=== PATIENT | female | born 1985 | race African-American/Black ===

== ENCOUNTER 2018-08-23 17:43 | Inpatient (IN) | payer OTHER ==
--- NOTE | 2018-08-24 00:08 | HP ---
"COWS - Scale Resting Pulse: 1= [place] 81-100 Sweatin=Flushed/Facial Moisture Restless Observation: 0= Sits Still Pupil Size: 2= Moderately Dilated (Pupils = 5 mm) Bone or Joint Aches: 1= Mild Discomfort Runny Nose/ Eye Tearin= None GI Upset > 30mins: 2= Nausea/Diarrhea (No diarrhea) Tremor Observation: 1= Tremor [place], Not Seen Yawning Observation: 1= 1-2x During Session Anxiety or Irritability: 1=Feels Anxious/Irritable Goose Flesh Skin: 0=Smooth Skin COWS Score: 11 (IVDU w/ Cellulitis) CIWA Score - Admission Criteria OASAS Guidelines: Admission for Medically Managed Detox: Requires at least one of the followin. CIWA greater than 12 2. Seizures within the past 24 hours 3. Delirium tremens within the past 24 hours 4. Hallucinations within the past 24 hours 5. Acute intervention needed for co occurring medical disorder 6. Acute intervention needed for co occurring psychiatric disorder 7. Severe withdrawal that cannot be handled at a lower level of care (continued vomiting, continued diarrhea, abnormal vital signs) requiring intravenous medication and/or fluids 8. Admission [facility] Chief Complaint: Here w/ heroin withdrawal Allergies/Adverse Reactions: Allergies Allergy/AdvReac Type Severity Reaction Status Date / Time Sulfa (Sulfonamide Allergy Severe Hives Verified 08/24/18 01:22 Antibiotics) History of Present Illness: I need detox. Heroin use began age 28. IV and nasal. 1 bundle/ day x 8 months. Last used . Cocaine use began at age 33. States use IV. States does not share needles or works. Alcohol use began at age 20. Drinks occasionally on weekends - 2 cups. Denies blackouts, seizures, overdoses. No Narcan Kit at home. Willing to accept upon discharge. Longest lenght of sobriety 1 year while on a MMTP ( 1 year ago). Relapsed after stopping MMT. PMHx: HTN, Iron Deficiency Anemia, LBP, MHHx: Anxiety, insomnia, depression. On meds. Last saw MH Provider 6 months ago. Denies thoughts of harming self or others. Search Terms: Yahaira Whiting, 1985 Search Date: 08/24/2018 12:03:54 AM The Drug Utilization Report below displays all of the controlled substance prescriptions, if any, that your patient has filled in the last twelve months. The information displayed on this report is compiled from pharmacy submissions to the Department, and accurately reflects the information as submitted by the pharmacies. This report was requested by: Daphnie Mcdaniel | Reference #: [id number] There are no results for the search terms that you entered Exam Limitations: No Limitations - Ebola screening Have you traveled outside of the country in the last 21 days: No Have you had contact with anyone from an Ebola affected area: No Do you have a fever: No - Review of Systems Constitutional: Chills, Diaphoresis, Changes in sleep (Difficulty falling asleep - state takes Trazodone) EENT: reports: Blurred Vision Respiratory: reports: Cough (Cough x 1 week. Denies chest pain, SOB) Cardiac: reports: No Symptoms Reported GI: reports: Nausea : reports: No Symptoms Reported Musculoskeletal: reports: Back Pain (LBP x 1 year. Intermittent r/t bending. Back hurts now r/t withdrawal.) Integumentary: reports: Lesions ((L) arm from IVDU) Neuro: reports: No Symptoms reported Endocrine: reports: Increased Thirst Hematology: reports: Anemia (Iron Deficiency) Psychiatric: reports: Judgement Intact, Orientated x3, Anxious, Depressed ( Denies thoughts of harming self or others.) Patient History - PPD History Previous Implant?: Yes Documented Results: Negative w/o proof Implanted On Prior R Admission?: No PPD to be Administered?: Yes - Reproductive History Patient is a Female of Child Bearing Age (11 -55 yrs old): Yes Patient : No - Smoking Cessation Smoking history: Former smoker Have you smoked in the past 12 months: No Hx Chewing Tobacco Use: No Initiated information on smoking cessation: No - Substance & Tx. History Hx Alcohol Use: No Hx Substance Use: Yes Substance Use Type: Cocaine, Heroin Hx Substance Use Treatment: Yes (detox, past MMTP) - Substances abused Heroin Substance route: Injection Frequency: Daily Amount used: 1 bundle Age of first use: 28 Date of last use: 08/23/18 Admission Physical Exam BHS - Vital Signs Vital Signs: Vital Signs - 24 hr 08/23/18 22:22 Temperature 97.1 F L Pulse Rate 91 H Respiratory 18 Rate Blood Pressure 118/82 - Physical General Appearance: Yes: Mild Distress, Tremorous, Sweating (Increased facial moisture), Anxious HEENTM: Yes: EOMI, Hearing grossly Normal, Normocephalic, Normal Voice, STELLA ( Puplis = 5 mm), Pharynx Normal Respiratory: Yes: Lungs Clear, Normal Breath Sounds, No Respiratory Distress Neck: Yes: No masses,lesions,Nodules, Supple Breast: Yes: Breast Exam Deferred Cardiology: Yes: Regular Rhythm, Regular Rate, S1, S2 Abdominal: Yes: Flat, Soft, Increased Bowel Sounds, Tenderness (Mid-epigastric tenderness. No guarding. No rebound.) Genitourinary: Yes: Within Normal Limits Back: Yes: Normal Inspection Musculoskeletal: Yes: full range of Motion, Gait Steady Extremities: Yes: Normal Capillary Refill, Normal Range of Motion, Tremors (mild ) Neurological: Yes: pavilion cutter II-XII NML intact, Fully Oriented, Alert, Motor Strength 5/5 Integumentary: Yes: Normal Color, Warm, Diaphoresis, Track Ferris (Old and new track ferris. Increased warmth, induration, swelling at (L) wrist/radial area w/ increased tenderness.) Lymphatic: Yes: Within Normal Limits - Diagnostic (1) Opioid dependence with withdrawal Current Visit: Yes Status: Acute Comment: IVDU (2) Essential (primary) hypertension Current Visit: Yes Status: Chronic (3) History of low back pain Current Visit: Yes Status: Chronic (4) Anemia Current Visit: Yes Status: Chronic Qualifiers: Anemia type: iron deficiency Iron deficiency anemia type: unspecified iron deficiency Qualified Code(s): D50.9 - Iron deficiency anemia, unspecified (5) Cocaine dependence, uncomplicated Current Visit: Yes Status: Chronic Comment: IVDU (6) Cellulitis Current Visit: Yes Status: Acute Qualifiers: Site of cellulitis: extremity Site of cellulitis of extremity: upper extremity Laterality: left Qualified Code(s): L03.114 - Cellulitis of left upper limb Cleared for Admission S - Detox or Rehab [facility] Level of Care: Medically Managed Detox Regimen/Protocol: Methadone Breathalyzer - Breathalyzer Breathalyzer: 0 POC Urine test - Test device test lot number: [id number] Expiration date: 01/22/20 - Control test control: Yes - Result Urine Test Results: Negative - NO line present Urine Drug Screen - Test Device Lot number: [id number] Expiration date: 04/22/20 - Control Is test valid?: Yes - Results Drug screen NEGATIVE: No Urine drug screen results: CARLOS-Cocaine, FEN-Fentanyl, MOP-Opiates Inpatient Rehab Admission - Rehab Decision to Admit Inpatient rehab admission?: No"
[2018-08-24] MEDS ORDERED: BISMUTH SUBSALICYLATE 524 MG/30 ML UD PO PRN (00:39)
[2018-08-24] MEDS ORDERED: METHOCARBAMOL 500 MG TABLET PO PRN (00:39)
[2018-08-24] MEDS ORDERED: MENTHOL/PHENOL 1 EACH UD MM PRN (00:39)
[2018-08-24] MEDS ORDERED: IBUPROFEN 400 MG TABLET (FP) PO PRN (00:39)
[2018-08-24] MEDS ORDERED: MAGNESIUM HYDROX 2400MG/30ML ORAL SUSPENSION 30 ML CUP PO PRN (00:39)
[2018-08-24] MEDS ORDERED: ACETAMINOPHEN 325 MG TABLET (FP) PO PRN ×2 (00:39)
[2018-08-24] MEDS ORDERED: MAG HYDROX/AL HYDROX/SIMETH 30 ML UNIT-DOSE CUP PO PRN (00:39)
[2018-08-24] MEDS ORDERED: MAGNESIUM CITRATE 300 ML BOTTLE PO PRN (00:39)
[2018-08-24] MEDS ORDERED: cloNIDine HCL 0.1 MG TABLET PO PRN (00:39)
[2018-08-24] MEDS ORDERED: METHADONE HCL 10 MG TABLET (FOR DETOX USE ONLY) PO ONE ×2 (00:44→10:00)
[2018-08-24] MEDS ORDERED: NALOXONE HCL 0.4 MG/ML VIAL IVPUSH PRN (00:44)
[2018-08-24] MEDS ORDERED: PROCHLORPERAZINE MALEATE 5 MG TABLET PO PRN (00:44)
[2018-08-24] MEDS ORDERED: guaiFENesin 200 MG/10 ML 10 ML UNIT-DOSE CUPS PO PRN (00:44)
[2018-08-24] MEDS: clonazePAM 0.5 MG TABLET PO PRN (01:30)
[2018-08-24] MEDS: CEPHALEXIN MONOHYDRATE 500 MG CAPSULE (UD) PO SCH ×4 (05:36→23:04)
--- NOTE | 2018-08-24 10:08 | EKG ---
Test Reason : Blood Pressure : / mmHG Vent. Rate : 066 BPM Atrial Rate : 066 BPM P-R Int : 244 ms QRS Dur : 074 ms QT Int : 394 ms P-R-T Axes : 053 102 062 degrees QTc Int : 413 ms SINUS RHYTHM WITH 1ST DEGREE A-V BLOCK RIGHTWARD AXIS BORDERLINE ECG NO PREVIOUS ECGS AVAILABLE Confirmed by LINCOLN SINGH MD ([id number]) on 08/24/2018 10:08:07 AM Referred By: TANIKA Confirmed By:LINCOLN SINGH MD
[2018-08-24] MEDS: PRENATAL VITAMINS W/ FOLIC ACID TABLET (FP) PO SCH (10:40)
--- NOTE | 2018-08-24 13:53 | PN ---
BHS COWS - Scale Resting Pulse: 1= [place] 81-100 Sweatin= Chills/Flushing Restless Observation: 1= Difficult to Sit Still Pupil Size: 0= Normal to Room Light Bone or Joint Aches: 1= Mild Discomfort Runny Nose/ Eye Tearin= None GI Upset > 30mins: 0= None Tremor Observation of Outstretched Hands: 0= None Yawning Observation: 0= None Anxiety or Irritability: 1=Feels Anxious/Irritable Goose Flesh Skin: 0=Smooth Skin COWS Score: 5 BHS Progress Note (SOAP) Subjective: pt states doing well with heroin detox protocol- has no complaints today O: Vital Signs - 24 hr 08/23/18 08/24/18 08/24/18 22:22 01:24 03:57 Temperature 97.1 F L 98.3 F Pulse Rate 91 H 78 Respiratory 18 18 18 Rate Blood Pressure 118/82 145/99 08/24/18 08/24/18 08/24/18 06:17 06:30 09:38 Temperature 97.2 F L 98.4 F Pulse Rate 71 68 Respiratory 18 18 20 Rate Blood Pressure 132/78 130/84 labs pending a/p: heroin detox: continue protocol day #2
[2018-08-24 14:51] LABS: EPI CELLS 7.5 /HPF (0-5); PH,URINE >= 9.0 (5.0-8.0); URINE APPEARANCE CLOUDY; URINE BACTERIA 49.1 /hpf (NEGATIVE); URINE BILIRUBIN NEGATIVE (NEGATIVE); URINE CASTS 1 /hpf (0-8); URINE COLOR YELLOW; URINE GLUCOSE (UA) NEGATIVE (NEGATIVE); URINE KETONE NEGATIVE (NEGATIVE); URINE LEUK ESTERASE 1+ (NEGATIVE); URINE NITRITE NEGATIVE (NEGATIVE); URINE PROTEIN NEGATIVE (NEGATIVE); URINE RBC 3 /hpf (0-4); URINE UROBILINOGEN 0.2 mg/dL (0.2-1.0); URINE WBC 16 /hpf (0-5)
--- NOTE | 2018-08-24 15:42 | CONSULT ---
[facility] Psychiatric Consult - Data Date of interview: 08/24/18 Admission source: [facility] Identifying data: First admission to [facility] for this 33 y/o AA female self- referred for detoxification treatment (heroin,cocaine). Examined at [address] [place] [address]. Patient is , a mother of two, homeless, unemployed and deprived of financial assistance. Substance Abuse History: Discussed in this interview. Patient confirms enduring history of heroin + cocaine abuse. Was able to observe sobriety during the period of methadone maintenance (a few months ago). Details in current [facility] report : Smoking history: Former smoker. Have you smoked in the past 12 months : No. Hx Chewing Tobacco Use: No. Initiated information on smoking cessation: No. - Substance & Tx. History. Hx Alcohol Use: No. Hx Substance Use: Yes. Substance Use Type: Cocaine, Heroin. Hx Substance Use Treatment: Yes (detox, past MMTP). - Substances abused. Heroin. Substance route: Injection. Frequency: Daily. Amount used: 1 bundle. Age of first use: 28. Date of last use: 08/23/18 Medical History: Consistent with hypertension, chronic lumbar pain and iron deficiency anemia. Psychiatric History: No reported history of psychiatric hospitalizations. Patient indicates that she was diagnosed recently, by a psychiatrist in [place], with MDD and prescribed sertaline. NOT taken for past SIX months (self -report). Ms Hays denies history of suicide attempts. Physical/Sexual Abuse/Trauma History: No history of abuse. Additional Comment: Urine drug screen results: CARLOS-Cocaine, FEN-Fentanyl, MOP- Opiates. Noted. Mental Status Exam - Mental Status Exam Alert and Oriented to: Time, Place, Person Cognitive Function: Good Patient Appearance: Well Groomed (edentulous, wearing a wig) Mood: Nervous, Withdrawn Affect: Appropriate, Normal Range Patient Behavior: Fatigued (appears tired), Appropriate, Cooperative Speech Pattern: Clear, Appropriate Voice Loudness: Normal Thought Process: Goal Oriented Thought Disorder: Not Present Hallucinations: Denies Suicidal Ideation: Denies Homicidal Ideation: Denies Insight/Judgement: Poor Sleep: Fair Appetite: Fair, Weight loss Muscle strength/Tone: Normal (no complaint offered) Gait/Station: Normal Psychiatric Findings - Problem List ([place] 1, 2,3) (1) Opioid dependence with withdrawal Current Visit: Yes Status: Acute Comment: IVDU (2) Cocaine dependence, uncomplicated Current Visit: Yes Status: Chronic Comment: IVDU (3) Substance induced mood disorder Current Visit: Yes Status: Chronic (4) Non-compliance Current Visit: Yes Status: Chronic - Initial Treatment Plan Initial Treatment Plan: Psychoeducation. Sleep hygiene. Detoxification in progress. Support. Groups. NA meetings. Rehabilitation recommended. Relapse prevention (MAT) : discussed with the patient. Motivational rounds. Observation.
[2018-08-24] MEDS: THIAMINE HCL 100 MG TABLET (FP) PO SCH (22:13)
[2018-08-24] MEDS: MELATONIN 5 MG TABLETS PO PRN (22:14)
[2018-08-25] MEDS: CEPHALEXIN MONOHYDRATE 500 MG CAPSULE (UD) PO SCH ×4 (05:43→23:33)
[2018-08-25] MEDS: clonazePAM 0.5 MG TABLET PO PRN ×3 (05:43→18:26)
[2018-08-25] MEDS ORDERED: METHADONE HCL 10 MG TABLET (FOR DETOX USE ONLY) PO ONE (10:00)
[2018-08-25] MEDS: PRENATAL VITAMINS W/ FOLIC ACID TABLET (FP) PO SCH (10:10)
[2018-08-25 10:12] LABS: ALBUMIN 2.8 g/dl (3.4-5.0); ALK PHOS 52 U/L (45-117); ANION GAP 6 MMOL/L (8-16); BILIRUBIN,TOTAL 0.2 mg/dL (0.2-1); BLOOD UREA NITROGEN 11 mg/dL (7-18); CALCIUM 8.4 mg/dL (8.5-10.1); CHLORIDE 106 mmol/L (98-107); CO2 28 mmol/L (21-32); CREATININE 0.6 mg/dL (0.55-1.3); GLUCOSE,RANDOM 94 mg/dL (74-106); POTASSIUM 4.1 mmol/L (3.5-5.1); SGOT/AST 14 U/L (15-37); SGPT/ALT 17 U/L (13-61); SODIUM 140 mmol/L (136-145)
[2018-08-25 10:20] LABS: HEMATOCRIT 39.2 % (32.4-45.2); HEMOGLOBIN 12.6 GM/dL (10.7-15.3); MCH 26.7 pg (25.7-33.7); MCHC 32.2 g/dl (32.0-36.0); MEAN CELL VOLUME 82.7 fl (80-96); MEAN PLT VOLUME 7.5 fl (7.5-11.1); PLATELET COUNT 240 K/MM3 (134-434); RBC 4.74 M/mm3 (3.60-5.2); RDW 13.5 % (11.6-15.6); WHITE BLOOD COUNT 3.5 K/mm3 (4.0-10.0)
[2018-08-25] MEDS: FLUTICASONE PROP 0.05% 16 GM NASAL SPRAY NS SCH ×2 (13:39→22:05)
--- NOTE | 2018-08-25 17:31 | PN ---
BHS COWS - Scale Resting Pulse: 1= [place] 81-100 Sweatin= Chills/Flushing Restless Observation: 1= Difficult to Sit Still Pupil Size: 0= Normal to Room Light Bone or Joint Aches: 1= Mild Discomfort Runny Nose/ Eye Tearin= Nasal Congestion GI Upset > 30mins: 0= None Tremor Observation of Outstretched Hands: 0= None Yawning Observation: 1= 1-2x During Session Anxiety or Irritability: 2=Irritable/Anxious Goose Flesh Skin: 3=Pil[place] COWS Score: 11 BHS Progress Note (SOAP) Subjective: Sweating, Nasal Congestion, Body Aches. Objective: PATIENT A & O X 3, OBSERVED AMBULATING ON UNIT. IN NO ACUTE DISTRESS. 08/25/18 17:29 Laboratory Tests 08/24/18 08/25/18 08/25/18 11:35 07:00 07:00 WBC 3.5 L RBC 4.74 Hgb 12.6 Hct 39.2 MCV 82.7 MCH 26.7 MCHC 32.2 RDW 13.5 Plt Count 240 MPV 7.5 Sodium 140 Potassium 4.1 Chloride 106 Carbon Dioxide 28 Anion Gap 6 L BUN 11 Creatinine 0.6 Creat Clearance w eGFR 114.44 Random Glucose 94 Calcium 8.4 L Total Bilirubin 0.2 AST 14 L ALT 17 Alkaline Phosphatase 52 Total Protein 6.0 L Albumin 2.8 L Urine Color Yellow Urine Appearance Cloudy Urine pH >= 9.0 H Ur Specific [place] 1.020 Urine Protein Negative Urine Glucose (UA) Negative Urine Ketones Negative Urine Blood Negative Urine Nitrite Negative Urine Bilirubin Negative Urine Urobilinogen 0.2 Ur Leukocyte Esterase 1+ H Urine WBC (Auto) 16 Urine RBC (Auto) 3 Urine Casts (Auto) 1 U Epithel Cells (Auto) 7.5 Urine Bacteria (Auto) 49.1 RPR Titer 08/25/18 07:00 WBC RBC Hgb Hct MCV MCH MCHC RDW Plt Count MPV Sodium Potassium Chloride Carbon Dioxide Anion Gap BUN Creatinine Creat Clearance w eGFR Random Glucose Calcium Total Bilirubin AST ALT Alkaline Phosphatase Total Protein Albumin Urine Color Urine Appearance Urine pH Ur Specific [place] Urine Protein Urine Glucose (UA) Urine Ketones Urine Blood Urine Nitrite Urine Bilirubin Urine Urobilinogen Ur Leukocyte Esterase Urine WBC (Auto) Urine RBC (Auto) Urine Casts (Auto) U Epithel Cells (Auto) Urine Bacteria (Auto) RPR Titer Nonreactive LABS NOTED. NO URINARY COMPLAINTS (BURNING, PAIN, FREQUENCY, URGENCY, HESITANCY) OFFERED BY PATIENT DURING TODAY'S ROUNDS ASSESSMENT. 08/25/18 17:30 Assessment: 08/25/18 17:29 WITHDRAWAL SYMPTOMS. Plan: CONTINUE DETOX. INCREASE DAILY PO FLUID INTAKE. FLONASE NS FOR NASAL CONGESTION.
[2018-08-25] MEDS: THIAMINE HCL 100 MG TABLET (FP) PO SCH (22:05)
[2018-08-25] MEDS: MELATONIN 5 MG TABLETS PO PRN (22:07)
[2018-08-26] MEDS: CEPHALEXIN MONOHYDRATE 500 MG CAPSULE (UD) PO SCH ×4 (06:29→23:20)
[2018-08-26] MEDS: clonazePAM 0.5 MG TABLET PO PRN ×2 (06:31→22:07)
[2018-08-26] MEDS ORDERED: METHADONE HCL 10 MG TABLET (FOR DETOX USE ONLY) PO ONE (10:00)
[2018-08-26] MEDS: PRENATAL VITAMINS W/ FOLIC ACID TABLET (FP) PO SCH (10:30)
[2018-08-26] MEDS: FLUTICASONE PROP 0.05% 16 GM NASAL SPRAY NS SCH ×2 (10:30→22:05)
[2018-08-26] MEDS: LIDOCAINE 5% TOPICAL PATCH TP SCH (15:09)
--- NOTE | 2018-08-26 16:45 | PN ---
BHS Progress Note (SOAP) Subjective: Body Aches, Nasal Congestion, Sweating. Objective: PATIENT A & O X 3, OBSERVED AMBULATING ON UNIT. IN NO ACUTE DISTRESS. 08/26/18 16:42 Vital Signs Temperature 98.7 F 08/26/18 14:28 Pulse Rate 84 08/26/18 14:28 Respiratory Rate 18 08/26/18 14:28 Blood Pressure 97/60 08/26/18 14:28 O2 Sat by Pulse Oximetry (%) Laboratory Tests 08/24/18 08/25/18 08/25/18 11:35 07:00 07:00 WBC 3.5 L RBC 4.74 Hgb 12.6 Hct 39.2 MCV 82.7 MCH 26.7 MCHC 32.2 RDW 13.5 Plt Count 240 MPV 7.5 Sodium 140 Potassium 4.1 Chloride 106 Carbon Dioxide 28 Anion Gap 6 L BUN 11 Creatinine 0.6 Creat Clearance w eGFR 114.44 Random Glucose 94 Calcium 8.4 L Total Bilirubin 0.2 AST 14 L ALT 17 Alkaline Phosphatase 52 Total Protein 6.0 L Albumin 2.8 L Urine Color Yellow Urine Appearance Cloudy Urine pH >= 9.0 H Ur Specific [place] 1.020 Urine Protein Negative Urine Glucose (UA) Negative Urine Ketones Negative Urine Blood Negative Urine Nitrite Negative Urine Bilirubin Negative Urine Urobilinogen 0.2 Ur Leukocyte Esterase 1+ H Urine WBC (Auto) 16 Urine RBC (Auto) 3 Urine Casts (Auto) 1 U Epithel Cells (Auto) 7.5 Urine Bacteria (Auto) 49.1 RPR Titer 08/25/18 07:00 WBC RBC Hgb Hct MCV MCH MCHC RDW Plt Count MPV Sodium Potassium Chloride Carbon Dioxide Anion Gap BUN Creatinine Creat Clearance w eGFR Random Glucose Calcium Total Bilirubin AST ALT Alkaline Phosphatase Total Protein Albumin Urine Color Urine Appearance Urine pH Ur Specific [place] Urine Protein Urine Glucose (UA) Urine Ketones Urine Blood Urine Nitrite Urine Bilirubin Urine Urobilinogen Ur Leukocyte Esterase Urine WBC (Auto) Urine RBC (Auto) Urine Casts (Auto) U Epithel Cells (Auto) Urine Bacteria (Auto) RPR Titer Nonreactive LABS NOTED. PATIENT DENIES ANY UNUSUAL URINARY COMPLAINTS (BURNING, PAIN, FREQUENCY, URGENCY , HESITANCY). 08/26/18 16:43 Assessment: 08/26/18 16:43 WITHDRAWAL SYMPTOMS. LEUKOPENIA. 08/26/18 16:44 Plan: CONTINUE DETOX. INCREASE DAILY PO FLUID INTAKE. REPEAT UA FOR ADMISSION ABNORMALITIES.
[2018-08-26] MEDS ORDERED: LIDOCAINE PATCH REMOVAL MC SCH (22:00)
[2018-08-26] MEDS: THIAMINE HCL 100 MG TABLET (FP) PO SCH (22:04)
[2018-08-26] MEDS: MELATONIN 5 MG TABLETS PO PRN (22:06)
[2018-08-27] MEDS: CEPHALEXIN MONOHYDRATE 500 MG CAPSULE (UD) PO SCH (05:21)
[2018-08-27] MEDS: clonazePAM 0.5 MG TABLET PO PRN (05:24)
[2018-08-27 09:13] VITALS: BP 113/71; PULSE 78; TEMP 97.5
[2018-08-27] MEDS ORDERED: METHADONE HCL 5 MG TABLET (FOR DETOX USE ONLY) PO ONE (09:36)
[2018-08-27] MEDS ORDERED: METHADONE HCL 10 MG TABLET (FOR DETOX USE ONLY) PO ONE (10:00)
[2018-08-27] MEDS: FLUTICASONE PROP 0.05% 16 GM NASAL SPRAY NS SCH (10:40)
[2018-08-27] MEDS: PRENATAL VITAMINS W/ FOLIC ACID TABLET (FP) PO SCH (10:40)
[2018-08-27] MEDS: LIDOCAINE 5% TOPICAL PATCH TP SCH (10:41)
--- NOTE | 2018-08-27 16:25 | PN ---
BHS Progress Note (SOAP) Subjective: Patient denies current Withdrawal / Detox symptoms and reports that he feels well overall. Objective: PATIENT A & O X 3, OBSERVED AMBULATING ON UNIT. IN NO ACUTE DISTRESS. 08/27/18 16:23 Vital Signs Temperature 97.5 F L 08/27/18 09:12 Pulse Rate 78 08/27/18 09:12 Respiratory Rate 18 08/27/18 09:12 Blood Pressure 113/71 08/27/18 09:12 O2 Sat by Pulse Oximetry (%) Laboratory Tests 08/24/18 08/25/18 08/25/18 11:35 07:00 07:00 WBC 3.5 L RBC 4.74 Hgb 12.6 Hct 39.2 MCV 82.7 MCH 26.7 MCHC 32.2 RDW 13.5 Plt Count 240 MPV 7.5 Sodium 140 Potassium 4.1 Chloride 106 Carbon Dioxide 28 Anion Gap 6 L BUN 11 Creatinine 0.6 Creat Clearance w eGFR 114.44 Random Glucose 94 Calcium 8.4 L Total Bilirubin 0.2 AST 14 L ALT 17 Alkaline Phosphatase 52 Total Protein 6.0 L Albumin 2.8 L Urine Color Yellow Urine Appearance Cloudy Urine pH >= 9.0 H Ur Specific [place] 1.020 Urine Protein Negative Urine Glucose (UA) Negative Urine Ketones Negative Urine Blood Negative Urine Nitrite Negative Urine Bilirubin Negative Urine Urobilinogen 0.2 Ur Leukocyte Esterase 1+ H Urine WBC (Auto) 16 Urine RBC (Auto) 3 Urine Casts (Auto) 1 U Epithel Cells (Auto) 7.5 Urine Bacteria (Auto) 49.1 RPR Titer 08/25/18 07:00 WBC RBC Hgb Hct MCV MCH MCHC RDW Plt Count MPV Sodium Potassium Chloride Carbon Dioxide Anion Gap BUN Creatinine Creat Clearance w eGFR Random Glucose Calcium Total Bilirubin AST ALT Alkaline Phosphatase Total Protein Albumin Urine Color Urine Appearance Urine pH Ur Specific [place] Urine Protein Urine Glucose (UA) Urine Ketones Urine Blood Urine Nitrite Urine Bilirubin Urine Urobilinogen Ur Leukocyte Esterase Urine WBC (Auto) Urine RBC (Auto) Urine Casts (Auto) U Epithel Cells (Auto) Urine Bacteria (Auto) RPR Titer Nonreactive LABS NOTED. Assessment: 08/27/18 16:23 COMPLETION OF DETOX REGIMEN. Plan: SINCE PATIENT DENIES CURRENT WITHDRAWAL / DETOX SYMPTOMS AND REPORTS THAT SHE FEELS WELL OVERALL, AT PATIENTS REQUEST, SHE WAS GRANTED AN EARLY DISCHARGE FROM DETOX UNIT TODAY SO THAT SHE MAY ATTEND TO PERSONAL AFFAIRS.
--- NOTE | 2018-08-27 19:12 | DS ---
[facility] Detox Discharge Summary Admission Date: 08/24/18 Discharge Date: 08/27/18 - History Present History: Cocaine Dependence, Opioid Dependence Additional Comments: PATIENT DENIES CURRENT WITHDRAWAL / DETOX SYMPTOMS AND REPORTS THAT SHE FEELS WELL OVERALL AT TIME OF DISCHARGE FROM DETOX UNIT. PATIENT GOING TO ATTEND TO PERSONAL AFFAIRS FOR TIME BEING; PATIENT ADVISED TO CONSIDER LOCAL 12-STEP / NA OUTPATIENT SUPPORT GROUP PROGRAM FOR AFTERCARE WHEN POSSIBLE. PATIENT ADVISED TO FOLLOW-UP WITH C IRON WORKER AFTER DISCHARGE FROM DETOX FOR GENERAL MEDICAL ASSESSMENT AND FOR CELLULITIS OF LEFT ARM DIAGNOSED ON ADMISSION TO DETOX, FOR HISTORY OF HTN, AND FOR LOW WBC LEVEL NOTED ON DETOX ADMISSION LABORATORY ASSESSMENT. COPIES OF RESULTS OF ALL LABS DRAWN WHILE ADMITTED FOR DETOX GIVEN TO PATIENT AT TIME OF DISCHARGE FROM DETOX UNIT. DISCHARGE PRESCRIPTION FOR REMAINDER OF COURSE OF ANTIBIOTIC (KEFLEX) PRESCRIBED FOR CELLULITIS OF LEFT ARM ON ADMISSION TO DETOX SENT TO [facility] ([place], [place]) FOR PATIENT TO CONTINUOUS IMPROVEMENT DIRECTOR AFTER DISCHARGE FOR FOLLOW-UP AFTERCARE. PATIENT ADVISED TO COMPLETE FULL COURSE OF REMAINDER OF ANTIBIOTIC. PATIENT VERBALIZED UNDERSTANDING OF RECOMMENDATION. PATIENT WAS DISCHARGED FROM DETOX UNIT IN STABLE MEDICAL CONDITION. Pertinent Past History: HTN, History of Iron-Deficiency Anemia, History Of Lower Back Pain, Anxiety, Insomnia, History of Depression, Cellulitis Of Left Arm. - Physical Exam Results Vital Signs: Vital Signs Temperature 97.5 F L 08/27/18 09:12 Pulse Rate 78 08/27/18 09:12 Respiratory Rate 18 08/27/18 09:12 Blood Pressure 113/71 08/27/18 09:12 O2 Sat by Pulse Oximetry (%) Pertinent Admission Physical Exam Findings: WITHDRAWAL SYMPTOMS. Laboratory Tests 08/24/18 08/25/18 08/25/18 11:35 07:00 07:00 WBC 3.5 L RBC 4.74 Hgb 12.6 Hct 39.2 MCV 82.7 MCH 26.7 MCHC 32.2 RDW 13.5 Plt Count 240 MPV 7.5 Sodium 140 Potassium 4.1 Chloride 106 Carbon Dioxide 28 Anion Gap 6 L BUN 11 Creatinine 0.6 Creat Clearance w eGFR 114.44 Random Glucose 94 Calcium 8.4 L Total Bilirubin 0.2 AST 14 L ALT 17 Alkaline Phosphatase 52 Total Protein 6.0 L Albumin 2.8 L Urine Color Yellow Urine Appearance Cloudy Urine pH >= 9.0 H Ur Specific [place] 1.020 Urine Protein Negative Urine Glucose (UA) Negative Urine Ketones Negative Urine Blood Negative Urine Nitrite Negative Urine Bilirubin Negative Urine Urobilinogen 0.2 Ur Leukocyte Esterase 1+ H Urine WBC (Auto) 16 Urine RBC (Auto) 3 Urine Casts (Auto) 1 U Epithel Cells (Auto) 7.5 Urine Bacteria (Auto) 49.1 RPR Titer 08/25/18 07:00 WBC RBC Hgb Hct MCV MCH MCHC RDW Plt Count MPV Sodium Potassium Chloride Carbon Dioxide Anion Gap BUN Creatinine Creat Clearance w eGFR Random Glucose Calcium Total Bilirubin AST ALT Alkaline Phosphatase Total Protein Albumin Urine Color Urine Appearance Urine pH Ur Specific [place] Urine Protein Urine Glucose (UA) Urine Ketones Urine Blood Urine Nitrite Urine Bilirubin Urine Urobilinogen Ur Leukocyte Esterase Urine WBC (Auto) Urine RBC (Auto) Urine Casts (Auto) U Epithel Cells (Auto) Urine Bacteria (Auto) RPR Titer Nonreactive LABS NOTED. - Treatment Hospital Course: Detox Protocol Followed, Detoxed Safely, Responded well, Discharged Condition Good Patient has Accepted a Rehab Referral to: PT. ADVISED TO CONSIDER LOCAL 12-STEP/ NA OUTPATIENT SUPPORT GROUP PROGRAMS. - Medication Discharge Medications: Ambulatory Orders Sertraline HCl [Zoloft] 25 mg PO DAILY 08/23/18 Trazodone HCl 150 mg PO HS 08/23/18 Cephalexin [Keflex] 500 mg PO TID 5 Days #15 capsule 08/27/18 Naloxone HCl [Narcan] 4 mg NS ASDIR PRN #1 kit 08/27/18 - Diagnosis (1) Cellulitis Status: Acute Qualifiers: Site of cellulitis: extremity Site of cellulitis of extremity: upper extremity Laterality: left Qualified Code(s): L03.114 - Cellulitis of left upper limb (2) Opioid dependence with withdrawal Status: Acute (3) Anemia Status: Chronic Qualifiers: Anemia type: iron deficiency Iron deficiency anemia type: unspecified iron deficiency Qualified Code(s): D50.9 - Iron deficiency anemia, unspecified (4) Cocaine dependence, uncomplicated Status: Chronic (5) Essential (primary) hypertension Status: Chronic (6) History of low back pain Status: Chronic (7) Non-compliance Status: Chronic (8) Substance induced mood disorder Status: Chronic - AMA Did Patient Leave Against Medical Advice: No
[2018-08-28] MEDS ORDERED: METHADONE HCL 5 MG TABLET (FOR DETOX USE ONLY) PO ONE (06:00)
== END 2018-08-27 10:58 | disposition home or self-care (01) | DRG 897 ==
LOC: YASAS 17:43 → Y3N 08-24 00:50
PROVIDERS: ADMIT Surgery; ATTEND Surgery
PROC: HZ2ZZZZ Detoxification Services for Substance Abuse Treatment (ICD-10-PCS; principal; 2018-08-24)
DX: F11.23 Opioid dependence with withdrawal (principal); F14.20 Cocaine dependence, uncomplicated; L03.114 Cellulitis of left upper limb; F19.24 Other psychoactive substance dependence with psychoactive substance-induced mood disorder; I10 Essential (primary) hypertension; D50.9 Iron deficiency anemia, unspecified; D72.819 Decreased white blood cell count, unspecified; M54.5 Low back pain; G89.29 Other chronic pain; Z88.2 Allergy status to sulfonamides; Z91.19 Patient's noncompliance with other medical treatment and regimen
CPT/HCPCS: 36415; 80053; 81003; 85027; 86593; 93005; 93010; J0735

== ENCOUNTER 2018-12-12 17:22 | Emergency (ER) | payer OTHER ==
--- NOTE | 2018-12-12 17:26 | PDOC ---
Rapid Medical Evaluation Time Seen by Provider: 12/12/18 17:25 Medical Evaluation: Allergies Allergy/AdvReac Type Severity Reaction Status Date / Time Sulfa (Sulfonamide Allergy Severe Hives Verified 12/12/18 17:24 Antibiotics) 12/12/18 17:25 I have performed a brief in-person evaluation of this patient. The patient presents with a chief complaint of: right forearm abscess s/p IVDU Pertinent physical exam findings: nothing I have ordered the following: nothing The patient will proceed to the ED for further evaluation. Discharge Disposition - Diagnosis Abscess - Referrals - Patient Instructions - Post Discharge Activity
[2018-12-12 17:27] VITALS: BP 139/94; PULSE 93; TEMP 98.6; BMI 24.6
--- NOTE | 2018-12-12 18:54 | PDOC ---
History of Present Illness - General Chief Complaint: Abscess Boil Stated Complaint: ABSCESS Time Seen by Provider: 12/12/18 17:25 History Source: Patient Exam Limitations: Clinical Condition - History of Present Illness Initial Comments: 12/12/18 19:02 Patient with history of hypertension and IV drug use present with complaint with 3 day history of abscess to right forearm from IV use. Patient report has been doing hot compresses to area for abscess still persist with swelling around area of abscess. Denies fever, chills. Denies numbness or tingling sensation. Denies any other symptoms Timing/Duration: reports: other (3 days) Past History - Past Medical History Allergies/Adverse Reactions: Allergies Allergy/AdvReac Type Severity Reaction Status Date / Time Sulfa (Sulfonamide Allergy Severe Hives Verified 12/12/18 17:24 Antibiotics) Home Medications: Ambulatory Orders Sertraline HCl [Zoloft] 25 mg PO DAILY 08/23/18 Trazodone HCl 150 mg PO HS 08/23/18 Cephalexin [Keflex] 500 mg PO TID 5 Days #15 capsule 08/27/18 Naloxone HCl [Narcan] 4 mg NS ASDIR PRN #1 kit 08/27/18 Clindamycin [Cleocin -] 300 mg PO TID #21 capsule 12/12/18 Mupirocin Ointment [Bactroban 2% Ointment -] 1 applic TP BID #1 tube 12/12/18 Asthma: No Cardiac Disorders: No COPD: No Diabetes: No GI Disorders: No Disorders: No HTN: Yes Kidney Stones: No Seizures: No - Reproductive History PID: Yes - Immunization History Immunization Up to Date: Yes - Suicide/Smoking/Psychosocial Hx Smoking History: Current every day smoker Have you smoked in the past 12 months: No Information on smoking cessation initiated: No Hx Alcohol Use: No Drug/Substance Use Hx: Yes (HEROIN) Substance Use Type: Cocaine, Heroin Hx Substance Use Treatment: Yes (detox, past [facility]) Review of Systems - Review of Systems Able to Perform ROS?: Yes Is the patient limited B[place] proficient: No Constitutional: No: Chills, Fever, Malaise, Weakness HEENTM: No: Symptoms Reported Respiratory: No: Symptoms reported Cardiac (ROS): No: Symptoms Reported Musculoskeletal: Yes: Symptoms Reported, See HPI, Muscle Pain (plantar aspect of right forearm) Integumentary: Yes: Symptoms Reported, See HPI, Erythema, Lumps (abscess to plantar side of right proximal forearm) Neurological: No: Symptoms reported, Numbness, Paresthesia, Tingling, Weakness All Other Systems: Reviewed and Negative *Physical Exam - Vital Signs Last Vital Signs Temp Pulse Resp BP Pulse Ox 98.6 F 93 H 18 139/94 100 12/12/18 17:26 12/12/18 17:26 12/12/18 17:26 12/12/18 17:26 12/12/18 17:26 - Physical Exam Comments: 12/12/18 19:05 GENERAL: Well developed, well nourished. Awake and alert. No acute distress. PULMONARY: No evidence of respiratory distress. MUSCULOSKELETAL : Mild swelling to proximal right forearm over plantar aspect with 4 cm area of hard induration with small area of close previously open wound with mild surrounding erythema over abscess. No bony deformities SKIN: Warm and dry. Normal capillary refill. 4 cm abscess to proximal plantar aspect of right forearm with small area of close wound with a hard induration for abscess. NEUROLOGICAL: Alert, awake, appropriate. No motor deficits in the lower extremities. Gait is normal without ataxia. PSYCHIATRIC: Cooperative. Good eye contact. Appropriate mood and affect. General Appearance: Yes: Nourished, Appropriately Dressed. No: Apparent Distress Medical Decision Making - Medical Decision Making 12/12/18 19:03 Patient with history of hypertension and IV drug use present with complaint with 3 day history of abscess to right forearm from IV use. Patient report has been doing hot compresses to area for abscess still persist with swelling around area of abscess. Denies fever, chills. Denies numbness or tingling sensation. Denies any other symptoms Exam significant for 4 cm area of hard induration with closed area of previously open wound overlying duration. Mild swelling around abscess to the plantar aspect of proximal right forearm. Abscess not ready to be I&D. Patient be discharged home on clindamycin antibiotics and topical Bactroban with advised to do hot compresses to abscess area with dermatology follow-up in 3-5 days for reassessment. Plan discussed with patient and patient agrees with plan.. Stable for discharge *DC/Admit/Observation/Transfer Diagnosis at time of Disposition: Abscess, Abscess of right forearm - Discharge Dispostion Disposition: HOME Condition at time of disposition: Stable Decision to Admit order: No - Prescriptions Prescriptions: Clindamycin [Cleocin -] 300 mg PO TID #21 capsule Mupirocin Ointment [Bactroban 2% Ointment -] 1 applic TP BID #1 tube - Referrals Referrals: Maryam Wall MD [Staff Physician] - - Patient Instructions Printed Discharge Instructions: DI for Skin Abscess Additional Instructions: Take medications as prescribed. Apply hot compress to right forearm over abscess 2-3 times a day as needed for swelling. Follow-up with referred dermatology in 3-5 days for reassessment - Post Discharge Activity
== END 2018-12-12 18:57 | disposition home or self-care (01) ==
LOC: JERFT 17:22
DX: L02.413 Cutaneous abscess of right upper limb (principal); I10 Essential (primary) hypertension; F17.210 Nicotine dependence, cigarettes, uncomplicated
CPT/HCPCS: 99281-25